=== PATIENT | female | born 1985 | race Native Hawaiian/Other Pacific Islander ===

== ENCOUNTER 2017-03-07 19:21 | Emergency (ER) | payer OTHER ==
[2017-03-07 19:28] VITALS: BP 144/88; PULSE 89; RESP 16; TEMP 97.8; O2SAT 100
--- NOTE | 2017-03-07 19:51 | ED PDOC ---
HPI: Female Pain Time Seen by Provider: 03/07/17 19:49 Chief Complaint (Nursing): Female Genitourinary Chief Complaint (Provider): VAGINAL BLEEDING History Per: Patient (31 Y/O FEMALE APPROX 9 WEEK GESTATION HERE WITH LOWER BACK PAIN AND VAGINAL BLEEDING. HAS AN US PENDING NEXT WEEK WITH PRIMARY ARTIST SCIENTIFIC.) Past Medical History Reviewed: Historical Data, Nursing Documentation, Vital Signs Vital Signs: Last Vital Signs Temp 97.8 F 03/07/17 19:23 Pulse 89 03/07/17 19:23 Resp 16 03/07/17 19:23 BP 144/88 03/07/17 19:23 Pulse Ox 100 03/07/17 19:23 - Family History Family History: States: No Known Family Hx - Allergies Allergies/Adverse Reactions: Allergies Allergy/AdvReac Type Severity Reaction Status Date / Time No Known Allergies Allergy Verified 03/07/17 19:23 Review of Systems ROS Statement: Except As Marked, All Systems Reviewed And Found Negative Physical Exam - Reviewed Nursing Documentation Reviewed: Yes Vital Signs Reviewed: Yes - Physical Exam Appears: Positive for: Well, Non-toxic, No Acute Distress Head Exam: Positive for: ATRAUMATIC, NORMAL INSPECTION, NORMOCEPHALIC Skin: Positive for: Normal Color, Warm, DRY Eye Exam: Positive for: EOMI, Normal appearance, PERRL ENT: Positive for: Normal ENT Inspection Neck: Positive for: Normal, Painless ROM Cardiovascular/Chest: Positive for: Regular Rate, Rhythm Respiratory: Positive for: CNT, Normal Breath Sounds Gastrointestinal/Abdominal: Positive for: Normal Exam, Bowel Sounds, Soft Pelvic Exam: Positive for: Active Bleeding, Other (CLOSED CERVIX) Back: Positive for: Normal Inspection Extremity: Positive for: Normal ROM Neurologic/Psych: Positive for: Alert, Oriented - ECG O2 Sat by Pulse Oximetry: 100 Disposition - Clinical Impression Clinical Impression: Threatened miscarriage - Patient ED Disposition Is Patient to be Admitted: No - Disposition Disposition: Transfer of Care Disposition Time: 19:52 Condition: FAIR Patient Signed Over To: Aric Broderick Handoff Comments: PENDING US/BLOODWORK
[2017-03-07 20:09] LABS: BASO # 0.1 K/uL (0.0-0.2); BASO % 0.8 % (0.0-2.0); EOS # 0.1 K/uL (0.0-0.7); HEMOGLOBIN 7.3 g/dL (12.0-16.0); LYMPH # 1.7 K/uL (1.0-4.3); LYMPH % 15.4 % (20.0-40.0); MEAN CORPUSCULAR HEMOGLOBIN 16.4 pg (27.0-31.0); MEAN CORPUSCULAR HGB CONC 27.2 g/dL (33.0-37.0); MEAN PLATELET VOLUME 8.5 fl (7.2-11.7); MONO # 0.7 K/uL (0.0-0.8); MONO % 6.2 % (0.0-10.0); NEUT # 8.4 K/uL (1.8-7.0); NEUT % 76.6 % (50.0-75.0); RBC 4.45 Mil/uL (3.80-5.20); RED CELL DISTRIBUTION WIDTH 20.8 % (11.5-14.5)
[2017-03-07 20:19] LABS: ALB/GLOB RATIO 1.2 (1.0-2.1); ALBUMIN 4.3 g/dL (3.5-5.0); ALT/SGPT 27 U/L (9-52); AST/SGOT 20 U/L (14-36); BLOOD UREA NITROGEN 10 mg/dl (7-17); CALCIUM 9.4 mg/dL (8.4-10.2); GFR AFRICAN-AMERICAN > 60; GFR NON-AFRICAN AMERICAN > 60
[2017-03-07 20:49] LABS: SQUAMOUS EPITHIAL 13 /hpf (0-5); URINE BACTERIA MOD (<OCC); URINE BILIRUBIN NEGATIVE (NEGATIVE); URINE BLOOD LARGE (NEGATIVE); URINE CALCIUM OXALATE CRYSTALS OCC /hpf (<OCC); URINE CLARITY CLOUDY (Clear); URINE COLOR YELLOW (YELLOW); URINE GLUCOSE (UA) NEG (Normal); URINE LEUKOCYTE ESTERASE LARGE Leu/uL (Negative); URINE NITRATE NEGATIVE (NEGATIVE); URINE PROTEIN 30 mg/dL (NEGATIVE)
--- NOTE | 2017-03-07 21:08 | ED PDOC ---
- Laboratory Results Result Diagrams: 03/07/17 19:45 03/07/17 19:45 - ECG O2 Sat by Pulse Oximetry: 100 - Progress ED Course And Treament: Signed out to me at 1999 pending lab and US results. HgB 7.3. On my initial evaluation, pt. in no distress. Reports vaginal bleeding has been since Thursday and she has only been using 1 liner per day except for today when bleeding slightly increased and she's had to use 3 liners. Pt. quantifies bleeding as "moderate" and is not heavy. Reports no hx of anemia. Denies weakness, SOB, palpitations. Further reports pt. has been evaluated by her OBGYN Dr. Fatima on 02/16/17 who just confirmed her but no US was performed yet. Urine culture sent. Pending US and type and screen results. TVUS: 1. Early single live intrauterine fetus with an estimated age of 9 weeks 0 days. The EDC is 10/10/2017. 2. Subchorionic measuring 4.4 x 1.8 x 5.0 cm Case and labs d/w Dr. Delcid who agrees with care and states pt. can f/u with her OBGYN on Thursday and that this anemia is likely chronic as pt. is asymptomatic and that bleeding is not severe. Pt. informed of plan and was instructed to return to ED if weakness develops or bleeding worsens. Pt. verbalized understanding of necessary f/u. Disposition - Clinical Impression Clinical Impression: Threatened miscarriage, UTI (urinary tract infection), Anemia - POA Present On Arrival: None - Disposition Disposition: Routine/Home Disposition Time: 21:41 Condition: STABLE Additional Instructions: FOLLOW UP WITH YOUR OBGYN ON THURSDAY WITHOUT FAIL FOR REPEAT BHCG WITHOUT FAIL OR RETURN TO ED IF UNABLE TO GO TO SEE OBGYN. Prescriptions: Nitrofurantoin Macrocrystals [Macrobid] 100 mg PO BID #14 cap Multivit/Folic Acid/I [ Plus] 1 tab PO DAILY #30 tab Instructions: Urinary Tract Infection in (ED), Threatened Miscarriage (ED), Anemia (ED)
--- NOTE | 2017-03-07 21:23 | US ---
Indication: Abdominal pain Comparison: None available Technique: Real-time ultrasound of the maternal uterus (limited) with image documentation. Findings: The uterus measures approximately 11.5 x 8.4 x 7.0 cm. Anteverted. Cervix length measures approximately 3.1 cm. Subchorionic hemorrhage measures approximately 4.5 x 1.8 x 5.0 cm. There is a single intrauterine fetus present. The gestational sac measures 3.7 and is compatible with a gestational age of 8 weeks 6 days. The crown-rump length measures 2.3 cm and is compatible with a gestational age of 9 weeks 0 days. There is heart motion which measured 190 BPM. The right ovary measures 3.2 x 2.2 x 1.4 cm. The left ovary measures 2.3 x 2.1 x 1.5 cm. Blood flow was demonstrated to both ovaries. Impression: Live single intrauterine with estimated gestational age 9 weeks 0 days. heart rate 190 bpm. Subchorionic hemorrhage measures approximately 4.5 x 1.8 x 5.0 cm. Advise an anomaly screen at 16-18 weeks gestational age Preliminary impression was provided by virtual radiologic.
[2017-03-07 21:44] LABS: MEAN CELL VOLUME 60.4 fl (81.0-99.0)
== END 2017-03-07 22:05 | disposition home or self-care (01) ==
LOC: H.ER 19:21
DX: O20.0 Threatened abortion (principal); O23.42 Unspecified infection of urinary tract in pregnancy, second trimester; O99.012 Anemia complicating pregnancy, second trimester; Z3A.18 18 weeks gestation of pregnancy

== ENCOUNTER 2017-09-26 01:23 | Emergency (ER) | payer OTHER ==
[2017-09-26 07:09] VITALS: BP 137/78; PULSE 104; TEMP 98.1
--- NOTE | 2017-09-26 08:21 | OBDCSUM ---
Datetime: 09/26/2017 02:07 Discharged to, Provider: Home Follow up at, Provider: [facility] Disch Instr Activity: Normal activity Disch Instr Diet: Regular Discharge Diagnosis, Provider: False Labor - Undelivered Discharge Time: 09/26/2017 02:07 Follow up in weeks, Provider: 10/01/2017 @ 10:30 am as scheduled Disch Referrals: None
--- NOTE | 2017-09-26 08:22 | OBHP ---
Datetime: 09/26/2017 02:10 IP Adm Impression: Term, intrauterine IP Admit Plan: Discharge home Admit Comment, IP Provider: 32 yo at 38.4 weeks gestational age, by LMP 12/29/16 and U/s at 13 weeks, with MARCELO of 10/06/17 presented to ED with painful contractions 5-6 minutes apart. Denies vagin al bleeding, denies loss of fluid, reports good movement. Last sexual activity two weeks ago. care: [facility],last visit 09/24/17. Last u/s 08/21/17. Next visit 10/01/17 OBHx: NVD 2011 at 37 weeks, no complications. 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 Med hx: anemia in this , pt unsure if she had anemia prior to , was not anemic d uring last Surg hx: none Fam hx: DM2 (mother) Social hx: denies tobacco, alcohol, drug use Allergies: NKDA Meds: PNV, IV iron infusions as per marketing officer 2x a week, FeSO4 325mg PO BID ROS: denies headache, dizziness, blurry vision, chest pain, shortness of breath, GI upset (n/v/d/c ), burning/pain with urination. PE: Gen: alert, oriented CV: S1S2,RRR Resp: clear breath sounds bilaterally, normal effort Abd: +BS, gravid, nontender, no RUQ or epigastric tenderness Ext: no edema, no tenderness SVE: 1cm dilated, 30% effaced, -3 station A: 32 yo at 38w4d GA. No signs of active labor at this time. P: Discharge home with ED precautions, encourage follow up at provider at scheduled visit on 10/01/17. Pt seen and discused with Dr. Mcdonald. [email or web address] Addendum by Dr. Mcdonald: Patient evaluated independently, I agree with the above. Patient was ruled out for labor and discharged home Extremities - PN: Normal Abdomen - PN: Normal Back - PN: Normal Breast - PN: Not Done Lungs - PN: Normal Heart - PN: Normal Neurologic - PN: Normal HEENT - PN: Normal General - PN: Normal FHR - Baseline A Provider: 150 Comments, ACOG Physical Exam: SVE: 1cm, 30% effaced, -3 station IP Hx Assessment: The History has been Reviewed and is Current EGA AdmitDate IP: 38.4 Vital Signs Provider: Reviewed IP Chief Complaint: Uterine contractions NICHD Variability Prov Fetus A: Moderate 6-25bpm NICHD Accel Fetus A IP Provider: 15X15 NICHD Decel Fetus A IP Provider: None Dilatation, Provider: 1 Effacement, Provider: 30 Station, Provider: -3 Genitourinary Exam: Normal
== END 2017-09-26 02:15 | disposition home or self-care (01) ==
LOC: H.EROB2 01:23 → H.L&D 01:36 → H.EROB2 02:15
DX: O47.1 False labor at or after 37 completed weeks of gestation (principal); Z3A.38 38 weeks gestation of pregnancy; O26.93 Pregnancy related conditions, unspecified, third trimester; R10.2 Pelvic and perineal pain

== ENCOUNTER 2017-09-28 09:43 | Emergency (ER) | payer OTHER ==
[2017-09-28 09:44] VITALS: BMI 33.4
[2017-09-28 09:55] VITALS: RESP 20; O2SAT 96
[2017-09-28] MEDS ORDERED: Sodium Chloride 0.9% 1,000 ML IV SCH (11:00)
--- NOTE | 2017-09-28 11:27 | ED PDOC ---
HPI: General Adult Time Seen by Provider: 09/28/17 10:22 Chief Complaint (Nursing): Flu-like Symptoms Chief Complaint (Provider): Flu-like Symptoms History Per: Patient History/Exam Limitations: no limitations Onset/Duration Of Symptoms: Days (x 6) Current Symptoms Are (Timing): Still Present Additional Complaint(s): Sharri is a 32 year old female (39 weeks ) who presents to the emergency department complaining of cough and runny nose for 6 days. Patient reports she developed body aches, chills, fever since yesterday. Symptoms are associated with nausea and intermittent diarrhea. Denies abdominal pain, vaginal pain, vaginal discharge,urinary symptoms. PMD: Lashawn Gomez Past Medical History Reviewed: Historical Data, Nursing Documentation, Vital Signs Vital Signs: Last Vital Signs Temp 98.0 F 09/28/17 09:54 Pulse 102 H 09/28/17 09:54 Resp 20 09/28/17 09:54 BP 137/73 09/28/17 09:54 Pulse Ox 96 09/28/17 11:34 - Medical History PMH: Anemia - Surgical History Surgical History: No Surg Hx - Family History Family History: States: Unknown Family Hx - Home Medications Home Medications: Ambulatory Orders Medication Instructions Recorded Nitrofurantoin Macrocrystals 100 mg PO BID #14 cap 03/07/17 [Macrobid] Multivit/Folic Acid/I 1 tab PO DAILY #30 tab 03/07/17 [ Plus] Oseltamivir Phosphate [Tamiflu] 75 mg PO BID #10 capsule 09/28/17 - Allergies Allergies/Adverse Reactions: Allergies Allergy/AdvReac Type Severity Reaction Status Date / Time No Known Allergies Allergy Verified 09/28/17 08:53 Review of Systems ROS Statement: Except As Marked, All Systems Reviewed And Found Negative Constitutional: Positive for: Fever, Chills, Other (Body aches) ENT: Positive for: Other (Runny nose) Respiratory: Positive for: Cough Gastrointestinal: Positive for: Nausea, Diarrhea (Intermittent). Negative for: Abdominal Pain Genitourinary Female: Negative for: Dysuria, Hematuria, Vaginal Discharge, Other (Vagina pain) Physical Exam - Reviewed Nursing Documentation Reviewed: Yes Vital Signs Reviewed: Yes - Physical Exam Appears: Positive for: Non-toxic Head Exam: Positive for: ATRAUMATIC, NORMAL INSPECTION, NORMOCEPHALIC Skin: Positive for: Normal Color, Warm, Dry Eye Exam: Positive for: Normal appearance, EOMI, PERRL ENT: Positive for: Nasal Congestion Neck: Positive for: Normal Cardiovascular/Chest: Positive for: Regular Rate, Rhythm Respiratory: Positive for: Normal Breath Sounds (Lungs clear). Negative for: Respiratory Distress Gastrointestinal/Abdominal: Positive for: Other (Belly ) Extremity: Positive for: Normal ROM. Negative for: Deformity Neurologic/Psych: Positive for: Alert, Oriented (x 3) - ECG O2 Sat by Pulse Oximetry: 96 (RA) Pulse Ox Interpretation: Normal Medical Decision Making Medical Decision Making: Time: 10:51 Viral Syndrome in Plan: - Sodium Chlroide 0.9% 1,000 ml IV 999 mls/hr - Tamiflu Cap 75 mg PO - Zofran Inj - Heart Tone Auscultation STAT Time: 11:05 - Urinalysis Heart Tone Auscultation STAT 130-140 After hydration, patient will follow up with OBGYN and PCP. Upon provider evaluation patient is medically stable, and requires no further treatment in the ED at this time. Patient will be discharged with Rx for Tamiflu. Counseling was provided and all questions were answered regarding diagnosis and need for follow up with OBGYN and PCP. There is agreement to discharge plan. Return if symptoms persist or worsen. Scribe Attestation: Documented by Johny Srinivasan, acting as a scribe for Quentin Cortez MD. Provider Scribe Attestation: All medical record entries made by the Scribe were at my direction and personally dictated by me. I have reviewed the chart and agree that the record accurately reflects my personal performance of the history, physical exam, medical decision making, and the department course for this patient. I have also personally directed, reviewed, and agree with the discharge instructions and disposition. Disposition - Clinical Impression Clinical Impression: Influenza, - Patient ED Disposition Is Patient to be Admitted: No - Disposition Referrals: Lashawn Gomez APN, CNM [Certified Nurse Pullman Clerk] - Disposition: Routine/Home Disposition Time: 11:23 Condition: STABLE Additional Instructions: Ms Pérez, thank you for letting us take care of you today. Your provider was Dr. Cortez. You were treated for , Viral Syndrome, Influenza-like symptoms. The emergency medical care you received today was directed at your acute symptoms. If you were prescribed any medication, please fill it and take as directed. It may take several days for your symptoms to resolve. Return to the Emergency Department if your symptoms worsen, do not improve, or if you have any other problems. Please contact your doctor or call one of the physicians/clinics you have been referred to that are listed on the Patient Visit Information form that is included in your discharge packet. Bring any paperwork you were given at discharge with you along with any medications you are taking to your follow up visit. Our treatment cannot replace ongoing medical care by a primary care provider (PCP) outside of the emergency department. Thank you for allowing the [facility] team to be part of your care today. If you had an X-Ray or CT scan: A Radiologist will review the ED reading if any change in treatment is needed we will contact you. If you had a blood, urine, or wound culture: It will take several days for the results, if any change in treatment is needed we will contact you. If you had an STI test: It will take 48 hours for the results. Please call after 1 week if you have not heard back. Prescriptions: Oseltamivir Phosphate [Tamiflu] 75 mg PO BID #10 capsule Instructions: Influenza (ED) Forms: [facility] (Congolese), [facility] ED School/Work Excuse
[2017-09-28 14:29] LABS: SQUAMOUS EPITHIAL 18 /hpf (0-5); URINE BACTERIA MOD (<OCC); URINE BILIRUBIN NEGATIVE (NEGATIVE); URINE BLOOD MODERATE (NEGATIVE); URINE CLARITY TURBID (Clear); URINE COLOR YELLOW (YELLOW); URINE GLUCOSE (UA) NEG (Normal); URINE LEUKOCYTE ESTERASE LARGE Leu/uL (Negative); URINE NITRATE NEGATIVE (NEGATIVE); URINE PROTEIN 30 mg/dL (NEGATIVE); URINE UROBILINOGEN 0.2-1.0 mg/dL (0.2-1.0)
[2017-09-28 17:44] VITALS: BP 126/76; PULSE 76; TEMP 98.2
== END 2017-09-28 14:00 | disposition home or self-care (01) ==
LOC: H.ER 09:43
DX: J11.1 Influenza due to unidentified influenza virus with other respiratory manifestations (principal); Z3A.39 39 weeks gestation of pregnancy; O99.89 Other specified diseases and conditions complicating pregnancy, childbirth and the puerperium
CPT/HCPCS: 81003; 96374; 99284; J2405; J7040

== ENCOUNTER 2017-09-29 11:44 | Inpatient (IN) | payer OTHER ==
[2017-09-28 09:44] VITALS: BMI 33.4
[2017-09-29] MEDS ORDERED: Lactated Ringer's 1,000 ML IV SCH (13:00)
--- NOTE | 2017-09-29 13:04 | OBADHP ---
Datetime: 09/29/2017 13:00 Admit Comment, IP Provider: 32 yo at 39weeks gestational age, by LMP 12/29/16 and U/s at 13 we eks, with MARCELO of 10/06/17 presented to ED with painful contractions 5-6 minutes apart since 9am... Den ies vaginal bleeding, denies loss of fluid, reports good movement. care: [facility],last visit 09/24/17. Last u/s 08/21/17. Next visit 10/01/17 OBHx: NVD 2011 at 37 weeks, no complications. 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 Med hx: anemia in this , pt unsure if she had anemia prior to , was not anemic d uring last Surg hx: none Fam hx: DM2 (mother) Social hx: denies tobacco, alcohol, drug use Allergies: NKDA Meds: PNV, IV iron infusions as per pulmonary function technologist 2x a week (last one on ) FeSO4 325mg PO BID ROS: denies headache, dizziness, blurry vision, chest pain, shortness of breath, GI upset (n/v/d/c ), burning/pain with urination. PE: Gen: alert, oriented CV: S1S2,RRR Resp: clear breath sounds bilaterally, normal effort Abd: +BS, gravid, nontender, no RUQ or epigastric tenderness Ext: no edema, no tenderness SVE: 3/80/-2 A: 32 yo at 39w latent phase of labor Hx Anemia PLAN: discussion with pt about ealry labor, pain management, medications (incl pitocin), augmentat ion methods, delivey and . She doesn't want to go home and wants to be delivered (with Mohit phuong augmentation)_ Pelvic Type - PN: Adequate Extremities - PN: Normal Abdomen - PN: Normal Back - PN: Normal Breast - PN: Not Done Lungs - PN: Normal Heart - PN: Normal Thyroid - PN: Normal Neurologic - PN: Normal HEENT - PN: Normal General - PN: Normal Presentation-Admit: Vertex FHR - Baseline A Provider: 135 Membranes, Provider: Intact Pool Provider: Negative IP Hx Assessment: The History has been Reviewed and is Current Vital Signs Provider: Reviewed; Within Normal Limits IP Chief Complaint: Uterine contractions NICHD Variability Prov Fetus A: Moderate 6-25bpm NICHD Accel Fetus A IP Provider: 15X15 FHR Category Provider Fetus A: Category I NICHD Decel Fetus A IP Provider: None Dilatation, Provider: 3 Genitourinary Exam: Normal DTRs - PN: Normal EGA AdmitDate IP: 39.1 IP Adm Impression: Term, intrauterine ; No Active Labor; Intact Membranes IP Admit Plan: Admit to unit; Initiate labor protocol Datetime: 09/28/2017 10:15 IP Chief Complaint Other: URI Datetime: 09/26/2017 02:10 Comments, ACOG Physical Exam: SVE: 1cm, 30% effaced, -3 station Effacement, Provider: 30 Station, Provider: -3
[2017-09-29] MEDS ORDERED: Oxytocin 30 UNITS in Sodium Chloride 0.9% 500 ML IV ONE (13:06)
[2017-09-29] MEDS ORDERED: Oxytocin 30 UNITS in Sodium Chloride 0.9% 500 ML IV SCH (14:00)
[2017-09-29] MEDS: Lactated Ringer's 1,000 ML IV SCH ×2 (14:26→16:01)
[2017-09-29 15:18] LABS: BASO % 0.2 % (0.0-2.0); EOS % 0.1 % (0.0-4.0); HEMOGLOBIN 12.1 g/dL (12.0-16.0); LYMPH # 0.7 K/uL (1.0-4.3); LYMPH % 5.8 % (20.0-40.0); MEAN CELL VOLUME 86.9 fl (81.0-99.0); MEAN CORPUSCULAR HEMOGLOBIN 27.8 pg (27.0-31.0); MEAN PLATELET VOLUME 9.5 fl (7.2-11.7); MONO # 0.8 K/uL (0.0-0.8); MONO % 6.9 % (0.0-10.0); NEUT # 10.1 K/uL (1.8-7.0); NRBC % 0.1 % (0.0-0.0); PLATELET COUNT 144 K/uL (130-400); RBC 4.34 Mil/uL (3.80-5.20); RED CELL DISTRIBUTION WIDTH 21.6 % (11.5-14.5); WHITE BLOOD COUNT 11.6 K/uL (4.8-10.8)
[2017-09-29] MEDS ORDERED: Lidocaine 1% Inj (20ml) ONE (15:20)
[2017-09-29] MEDS ORDERED: Fentanyl/Bupivacaine HCl 250 ML EPI ONE (15:26)
[2017-09-29 15:40] LABS: ANISOCYTOSIS MODERATE; EOSINOPHIL 2 % (0-7); HYPERSEGMENTATION PRESENT; LYMPHOCYTE 5 % (20-50); MONOCYTE 5 % (0-10); NEUTROPHIL 88 % (42-75); PLATELET ESTIMATE NORMAL (NORMAL); TOTAL CELLS COUNTED 100
--- NOTE | 2017-09-29 18:17 | OBPN ---
Datetime: 09/29/2017 18:11 IP Progress Impression: Normal progression of labor; Reassuring heart rate IP Informed Consent Obtain: Vaginal Delivery; Risks, Benefits and Alternatives Discussed IP Procedures: Artificial ROM IP Progress Plan: Augmentation; Anticipate Vaginal Delivery Pool Provider: Negative Membranes, Provider: Ruptured Amniotic Fluid Color, Provider: Meconium, Light Contraction Comments Provider: 2-5m FHR - Baseline A Provider: 140 Presentation-Admit: Vertex IP Progress Note Comment: She feels fine after epidural. She was 7cm (checked by nurse) at 4:30pm. SVE 6-7cm (by me) Active phase of labor/slow progress due to irregular CTX PLAN Condition discussed with pt and she agreed with augmentation Pitocin at 1miu/h...AROM thin meconium noted...will increase Pitocin and also discussed nipple sti m NICHD Accel Fetus A IP Provider: 15X15 FHR Category Provider Fetus A: Category I NICHD Variability Prov Fetus A: Moderate 6-25bpm Dilatation, Provider: 6-7 Effacement, Provider: 90 Station, Provider: -1 NICHD Decel Fetus A IP Provider: None Datetime: 09/29/2017 13:00 Vital Signs Provider: Reviewed; Within Normal Limits
--- NOTE | 2017-09-29 20:44 | OBPN ---
Datetime: 09/29/2017 20:15 IP Progress Impression: Normal progression of labor; Reassuring heart rate IP Informed Consent Obtain: Vaginal Delivery IP Progress Plan: Continue present management; Augmentation Pool Provider: Positive Membranes, Provider: Ruptured Contraction Comments Provider: 2m FHR - Baseline A Provider: 130 Presentation-Admit: Vertex IP Progress Note Comment: She feels lower abd pressure Active labor/good progress PLAN: continue Pitocin at 1miu/h; anticipate NICHD Accel Fetus A IP Provider: 15X15 FHR Category Provider Fetus A: Category I NICHD Variability Prov Fetus A: Moderate 6-25bpm Dilatation, Provider: 9 Effacement, Provider: 100 Station, Provider: 0 NICHD Decel Fetus A IP Provider: None
[2017-09-29] MEDS ORDERED: Oxycodone/Acetaminophen 5/325 mg Tab PO PRN (22:16)
[2017-09-30] MEDS ORDERED: Benzocaine/Menthol SPRAY ONE (01:38)
[2017-09-30] MEDS ORDERED: Oxycodone/Acetaminophen 5/325 mg Tab PO PRN (01:58)
[2017-09-30] MEDS ORDERED: Benzocaine/Menthol SPRAY TOP PRN (02:05)
[2017-09-30 06:30] LABS: BASO % 0.3 % (0.0-2.0); EOS % 0.1 % (0.0-4.0); HEMOGLOBIN 10.7 g/dL (12.0-16.0); LYMPH # 0.9 K/uL (1.0-4.3); LYMPH % 7.9 % (20.0-40.0); MEAN CORPUSCULAR HEMOGLOBIN 27.9 pg (27.0-31.0); MEAN CORPUSCULAR HGB CONC 31.7 g/dL (33.0-37.0); MEAN PLATELET VOLUME 9.1 fl (7.2-11.7); MONO # 0.9 K/uL (0.0-0.8); MONO % 7.4 % (0.0-10.0); NEUT # 9.9 K/uL (1.8-7.0); NEUT % 84.3 % (50.0-75.0); RBC 3.83 Mil/uL (3.80-5.20); WHITE BLOOD COUNT 11.8 K/uL (4.8-10.8)
[2017-10-01 19:24] VITALS: BP 137/84; PULSE 106; RESP 20; TEMP 98.3; O2SAT 98
== END 2017-10-01 14:17 | disposition home or self-care (01) | DRG 775 ==
LOC: H.EROB2 11:44 → H.EROB 12:21 → H.L&D 12:55 → H.OB/GYN 09-30 00:15
PROVIDERS: ADMIT Obstetrics & Gynecology; ATTEND Obstetrics & Gynecology
PROC: 10E0XZZ Delivery of Products of Conception, External Approach (ICD-10-PCS; principal; 2017-09-29)
PROC: 0KQM0ZZ Repair Perineum Muscle, Open Approach (ICD-10-PCS; 2017-09-29)
PROC: 4A1HXCZ Monitoring of Products of Conception, Cardiac Rate, External Approach (ICD-10-PCS; 2017-09-29)
DX: O70.1 Second degree perineal laceration during delivery (principal); Z37.0 Single live birth; J06.9 Acute upper respiratory infection, unspecified; O69.81X0 Labor and delivery complicated by cord around neck, without compression, not applicable or unspecified; Z3A.39 39 weeks gestation of pregnancy; O77.0 Labor and delivery complicated by meconium in amniotic fluid; O99.52 Diseases of the respiratory system complicating childbirth